=== PATIENT | male | born 1960 | race Asian ===

== ENCOUNTER → 2016-10-08 | Outpatient (CLI) | payer OTHER ==
[2016-08-30 18:55] VITALS: BP 103/65
[~2016-10-08] MED LIST: FAMO-63 PO; HYDR-2666 PO; HYDR-971 PO; IOHEXOL 180 MG/ML 10 ML VIAL. ONE; ONDA4TAB10 SL; PRED20TA PO; methylPREDNISolone ACETATE 40 MG/ML VIAL. ONE; methylPREDNISolone ACETATE 80 MG/ML VIAL. ONE
--- NOTE | 2016-10-08 22:10 | PAIN ---
DATE OF SERVICE: 10/08/2016 DIAGNOSES: Lumbar radiculopathy with lumbar degenerative disk disease, spinal stenosis and lumbar herniated disk. HISTORY OF PRESENT ILLNESS: The patient is a 56-year-old male who returns for followup status post lumbar epidural steroid injection x 1. The patient's daughter is with him who acts as a freelance interpreter/translator as patient speaks only Japanese. The patient reports about 75% improvement after the first injection in the low back and left leg. The patient reports that now this is more just in the back on both sides. There is a little bit of numbness in the leg, but much better. The patient reports he has been increasing his activity with greater ease and comfort and performing daily activities with much better ability and is sleeping better at night. The patient reports the pain is a 4-5 on scale of 10 and is just a small amount of pain in left. The patient reports no new motor or sensory deficits. No new bowel or bladder incontinence or other complaints. PHYSICAL EXAMINATION: VITAL SIGNS: The patient's blood pressure 106/71, pulse 87, respirations 18, temperature 98.4 degrees Fahrenheit, height is 5 feet 2 inches, weight is 126 pounds. GENERAL: The patient is awake, alert, oriented, appropriate, very pleasant demeanor. HEENT: Shows normocephalic, atraumatic. Extraocular movements are intact and symmetrical. Oral cavity shows mucous membranes moist and pink. Dentition is intact. NECK: Shows anterior throat supple. CHEST: Normal on inspection. Breath sounds are clear to auscultation bilaterally. HEART: Shows S1 and S2 clear. ABDOMEN: Soft, nontender, nondistended. There is some minor tenderness in the epigastric region just at the inferior aspect of the xiphoid, but without any tenderness with pressure on the xiphoid. Otherwise unremarkable. The patient's back shows spine grossly in the midline. Lumbar paraspinous muscle shows some moderate tenderness with palpation throughout the lower distribution of paraspinous musculature, but only mildly so and only diffusely. No tenderness over the sacrum or sacroiliac regions. No tenderness over the spinous processes themselves. The patient has good rotation and motion fully both right and left as well as extension and flexion without significant pain reported. EXTREMITIES: The patient's lower extremities show deep tendon reflexes at 1+ in the patellar and tendo calcaneus tendons. His motor exam is strong with dorsiflexion, extension, quadriceps and hamstring flexion rated at 5/5 and equal with actually a 4/5 on the left ankle and 5/5 on the right with dorsiflexion and extension. PLAN: The patient's old chart was reviewed as was his current medication regimen and updated. Current review of systems is updated today as well. Options were discussed and we will proceed with a second lumbar epidural steroid injection today with fluoroscopic guidance. Risks were again discussed including, but not limited to bleeding, infection, possibility of epidural hematoma, subsequent neurologic compromise, dural puncture, headaches, spinal cord and/or nerve damage, side effects of steroid medication and poor results regarding pain control. The patient understands and wished to proceed. The patient will return to clinic in approximately 2 weeks for followup, was counseled on return appointment, activity level and side effects to be aware of. DIAGNOSIS: Lumbar radiculopathy with lumbar degenerative disk disease, spinal stenosis and herniated lumbar disk. PROCEDURE: Lumbar epidural steroid injection, translaminar approach at the L5-S1 level using fluoroscopic guidance under sterile prep and drape with local anesthesia. MEDICATION INJECTION: 120 mg of Depo-Medrol plus 10 mL of preservative-free normal saline and 2 mL of Isovue contrast. CONDITION AT DISCHARGE: Stable. The patient tolerated the procedure well, had no complications. ASH ANDREWS MD DR: JACKY/anuel JOB#: [id number] / [id number]
== END | disposition home or self-care (01) ==
LOC: PNCL 10:07
PROVIDERS: ATTEND Anesthesiology
DX: M51.16 Intervertebral disc disorders with radiculopathy, lumbar region (principal); M48.06 Spinal stenosis, lumbar region
CPT/HCPCS: 62323; J1030; J1040

== ENCOUNTER 2016-10-09 15:22 | Emergency (ER) | payer OTHER ==
[~2016-10-09] VITALS: Ht 162.6 cm; Wt 54.4 kg
[~2016-10-09 15:22] MED LIST changes: -HYDR-2666 PO; -IOHEXOL 180 MG/ML 10 ML VIAL. ONE; -ONDA4TAB10 SL; -methylPREDNISolone ACETATE 40 MG/ML VIAL. ONE; -methylPREDNISolone ACETATE 80 MG/ML VIAL. ONE
[2016-10-09 16:05] VITALS: BP 117/12
[2016-10-09] MEDS ORDERED: FENTANYL PF 100 MCG/2 ML VIAL. IV ONE (16:15)
[2016-10-09] MEDS ORDERED: IV NORMAL SALINE 1000ML BAG 1,000 ML IV SCH (16:15)
[2016-10-09] MEDS ORDERED: ONDANSETRON PF 4 MG/2 ML VIAL. IV ONE (16:15)
[2016-10-09 16:17] LABS: BASO # 0.1 x10^3/uL (0.0-0.2); BASO % 1 % (0-3); EOS % 0 % (0-3); HEMATOCRIT 41.3 % (39.0-53.0); HEMOGLOBIN 13.6 g/dL (13.0-17.5); LYMPH # 1.5 x10^3/uL (1.0-4.8); LYMPH % 12 % (24-48); MEAN CORPUSCULAR HEMOGLOBIN 25 pg (25-35); MEAN CORPUSCULAR HGB CONC 33 g/dL (31-37); MEAN CORPUSCULAR VOLUME 76 fL (79-100); MONO % 9 % (0-9); NEUT % 79 % (31-73); PLATELET COUNT 267 x10^3/uL (140-400); RED BLOOD COUNT 5.45 x10^6/uL (4.30-5.70); RED CELL DISTRIBUTION WIDTH 15.1 % (11.5-14.5); WHITE BLOOD COUNT 12.5 x10^3/uL (4.0-11.0)
[2016-10-09 16:34] LABS: CALCIUM 8.3 mg/dL (8.5-10.1); CREATININE 0.8 mg/dL (0.7-1.3); GFR 100.7; POTASSIUM 3.7 mmol/L (3.5-5.1)
[2016-10-09 16:42] LABS: ALBUMIN 3.5 g/dL (3.4-5.0); TOTAL BILIRUBIN 0.2 mg/dL (0.2-1.0); TOTAL PROTEIN 7.1 g/dL (6.4-8.2)
[2016-10-09] MEDS ORDERED: IOHEXOL 300 MG/ML 75 ML VIAL IV ONE (17:30)
[2016-10-09] MEDS ORDERED: CONTRAST GIVEN MC PRN (17:45)
[2016-10-09] MEDS ORDERED: HYDR-2666 PO (17:53)
[2016-10-09] MEDS ORDERED: ONDA4TAB10 SL (17:53)
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
[2016-10-09 18:03] LABS: BILIRUBIN,URINE NEGATIVE (NEG); GLUCOSE,URINE NEGATIVE (NEG); NITRITE,URINE NEGATIVE (NEG); PH,URINE 6.5; PROTEIN,URINE NEGATIVE (NEG-TRACE); UROBILINOGEN,URINE 0.2 mg/dL (0.2 mg/dL)
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
[2016-10-09 18:14] LABS: BACTERIA,URINE 0 /HPF (0-FEW); RBC,URINE RARE /HPF (0-2); WBC,URINE 0 /HPF (0-4)
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
--- NOTE | 2016-10-10 11:26 | EKG ---
[facility] [address] [place] [address] Test Date: 2016-10-09 Test Time: 16:02:31 Pat Name: CORAL DAN Department: Room: Gender: M Tobacco Dipper: : 1960 Requested By: DEWAYNE LANCASTER Order Number: [id number] Reading MD: Audie Delarosa Measurements Intervals [place] Rate: 79 P: 59 MO: 162 QRS: 36 QRSD: 94 T: 38 QT: 350 QTc: 402 Interpretive Statements SINUS RHYTHM ANTERIOR SEPTAL INFARCT Electronically Signed On 10-12-2016 9:40:38 SOFTWARE SUPPORT REPRESENTATIVE by Audie Delarosa
== END 2016-10-09 18:40 | disposition home or self-care (01) ==
LOC: ER 15:22
DX: R10.13 Epigastric pain (principal); R11.2 Nausea with vomiting, unspecified; K21.9 Gastro-esophageal reflux disease without esophagitis
CPT/HCPCS: 36415; 74177; 80053; 81001; 83690; 84484; 85027; 93005; 96361; 96374; 96375; 99285; J2405; J3010; J7030; Q9967

== ENCOUNTER → 2016-11-04 | Outpatient (CLI) | payer OTHER ==
[2016-10-09 16:05] VITALS: BP 117/12
[~2016-11-04] MED LIST changes: +HYDR-2666 PO; +ONDA4TAB10 SL
--- NOTE | 2016-11-04 10:23 | RAD ---
Gastric emptying study; nuclear medicine study Indications: Severe abdominal pain after eating for one month.. Technique: After oral ingestion of a solid meal containing 2.0 mCi of technetium 99m sulfur colloid, anterior planar images of the upper abdomen were performed in sequential fashion and a time/activity curve was generated. Half time gastric clearance was measured and calculated. Comparison: None available. Findings: Half-time clearance is measured and calculated to be 126 minutes. Normal is 45-90 minutes. Therefore, there is a delay in gastric emptying. Radiotracer activity is present within the small bowel. No radiotracer activity is evident within the distal esophagus. IMPRESSION: Delay in gastric emptying.
== END | disposition home or self-care (01) ==
LOC: NM 08:18
PROVIDERS: ATTEND Specialist
DX: K30 Functional dyspepsia (principal); Z87.891 Personal history of nicotine dependence
CPT/HCPCS: 78264; A9541

== ENCOUNTER 2018-03-14 11:00 | Emergency (ER) | payer OTHER ==
[2018-03-14] MEDS: predniSONE 20 MG TABLET PO (11:46)
[2018-03-14] MEDS: IBUPROFEN 800 MG TABLET. PO (11:47)
[2018-03-14 12:41] LABS: BILIRUBIN,URINE NEGATIVE (NEG); CLARITY,URINE CLEAR; COLOR,URINE YELLOW; GLUCOSE,URINE NEGATIVE (NEG); NITRITE,URINE NEGATIVE (NEG); PROTEIN,URINE NEGATIVE (NEG-TRACE); UROBILINOGEN,URINE 0.2 mg/dL (0.2 mg/dL)
[2018-03-14 12:58] LABS: BACTERIA,URINE 0 /HPF (0-FEW); RBC,URINE 0 /HPF (0-2); SQUAMOUS EPITHELIAL CELL,UR FEW /LPF; WBC,URINE 0 /HPF (0-4)
== END 2018-03-14 13:26 | disposition home or self-care (01) ==
LOC: ER 11:00
DX: G89.29 Other chronic pain (principal); M54.9 Dorsalgia, unspecified; K21.9 Gastro-esophageal reflux disease without esophagitis; Z79.1 Long term (current) use of non-steroidal anti-inflammatories (NSAID); Z79.899 Other long term (current) drug therapy
CPT/HCPCS: 81001; 99283; J7512

== ENCOUNTER → 2018-03-22 | Outpatient (CLI) | payer OTHER ==
[~2018-03-22] MED LIST changes: -FAMO-63 PO; -HYDR-2666 PO; -HYDR-971 PO; +IOHEXOL 180 MG/ML 10 ML VIAL.; +LIDOCAINE 1% PF 2 ML VIAL.; -ONDA4TAB10 SL; -PRED20TA PO; +methylPREDNISolone ACETATE 40 MG/ML VIAL.; +methylPREDNISolone ACETATE 80 MG/ML VIAL.
== END ==
LOC: PNCL 09:37
DX: M51.16 Intervertebral disc disorders with radiculopathy, lumbar region (principal); M48.061 Spinal stenosis, lumbar region without neurogenic claudication; Z98.890 Other specified postprocedural states
CPT/HCPCS: 62323; J1030; J1040; Q9965

== ENCOUNTER → 2018-04-24 | Outpatient (CLI) | payer OTHER ==
[~2018-04-24] MED LIST changes: -LIDOCAINE 1% PF 2 ML VIAL.; +LIDOCAINE 2% PF 2ML VIAL.
== END | disposition home or self-care (01) ==
LOC: PNCL 10:49
DX: M51.16 Intervertebral disc disorders with radiculopathy, lumbar region (principal); M48.061 Spinal stenosis, lumbar region without neurogenic claudication; K21.9 Gastro-esophageal reflux disease without esophagitis; Z98.890 Other specified postprocedural states; Z79.899 Other long term (current) drug therapy; Z79.1 Long term (current) use of non-steroidal anti-inflammatories (NSAID); G89.29 Other chronic pain
CPT/HCPCS: 62323; J1030; J1040; J2001; Q9965

== ENCOUNTER 2018-08-07 15:35 | Emergency (ER) | payer OTHER ==
[~2018-08-07] VITALS: Ht 162.6 cm; Wt 59.0 kg
[~2018-08-07 15:35] MED LIST changes: +FAMO-63 PO; +HYDR-2758 PO; +HYDR-971 PO; -IOHEXOL 180 MG/ML 10 ML VIAL.; -LIDOCAINE 2% PF 2ML VIAL.; +ONDA4TAB10 SL; +PRED20TA PO; -methylPREDNISolone ACETATE 40 MG/ML VIAL.; -methylPREDNISolone ACETATE 80 MG/ML VIAL.
[2018-08-07 16:13] VITALS: BP 115/73
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
[2018-08-07] MEDS ORDERED: MAGNESIUM CITRATE 296 ML SOLUTION. PO ONE (17:15)
== END 2018-08-07 17:50 | disposition home or self-care (01) ==
LOC: ER 15:35
DX: K59.00 Constipation, unspecified (principal); K21.9 Gastro-esophageal reflux disease without esophagitis; G89.29 Other chronic pain
CPT/HCPCS: 74018; 99283